=== PATIENT | female | born 1985 | race Caucasian/White ===

== ENCOUNTER 2025-03-07 09:22 | Outpatient (CLI) | payer BC, SELFPAY ==
--- NOTE | ~2025-03-07 | US_ITS ---
EXAMINATION: US axilla BI HISTORY: Palpable abnormality High resolution limited bilateral breast ultrasound was performed. COMPARISON: None. No prior mammography has been performed at this institution for comparison. FINDINGS: ULTRASOUND: Multiple morphologically benign and nonpathologically enlarged lymph nodes are detected within the bi lateral axilla, corresponding to the areas of palpable concern. The largest on the right measures 14 mm in short axis dimension. The largest on the left measures 13.5 mm in short axis dimension. Sonographic evaluation of the remainder of the bilateral axilla demonstrates benign fibroglandular el ements without a cystic or solid lesion of concern IMPRESSION: No sonographic evidence to suggest the presence of malignancy. Findings corresponding to the areas of clinical concern which represent morphologically benign and n on-pathologically enlarged lymph nodes, as detailed above. Comparison with prior mammography (with repeat mammography if currently overdue) is recommended for c omplete evaluation. BI-RADS Category 0: Incomplete: Needs comparison with prior mammograms. Reviewed, dictated and finalized at location A. IMPRESSION: No sonographic evidence to suggest the presence of malignancy. Findings corresponding to the areas of clinical concern which represent morpho logically benign and non-pathologically enlarged lymph nodes, as detailed above . Comparison with prior mammography (with repeat mammography if currently overdue ) is recommended for complete evaluation. BI-RADS Category 0: Incomplete: Needs comparison with prior mammograms.
--- OUTSIDE RECORDS SUMMARY | 2025-03-07 09:29 | XMS_ITS | Clinical Summary ---
Author Organization [facility] Address [address] [place] [id number] Care Team Providers Care Corporate Development Intern Name Role Phone Unavailable Primary Care Provider Unavailabl e Social History Tobacco Use Types Packs/Day Years Used Date Smoking Tobacco: Never Assessed Comments Unknown Sex and Gender Information Value Date Recorded Sex Assigned at Not on file Legal Sex Female 4:48 PM CDT Gender Identity Not on file Sexual Orientation Not on file Plan of Treatment Health Maintenance Due Date Last Done Comments Cervical Cancer Screening Pa p Smear (Age 30 to 64) Every 3 Years 1983 Annual Physical 1986 Hepatitis C 2001 DTaP, Tdap and Td Vaccines ( 1 - Tdap) 2002 Hepatitis B Vaccines (1 of 3 - 19+ 3-dose series) 2002 Cervical Cancer Screening Pa p with HPV Testing (Age 30 to 64) Every 5 Years 2013 Cervical Cancer Screening with HPV 2013 Mammogram Screening 2023 COVID-19 Vaccine (2023-2 5 season) 2024 PHQ-2 (Physician [place]) 08/28/2024 HPV Vaccines Aged Out No longer eligi ble based on patient's age to complete this topic Meningococcal B Vaccine Aged Out No l onger eligible based on patient's age to complete this topic Meningococcal Vaccine Aged Out No janneth li eligible based on patient's age to complete this topic Pneumococcal Vaccine: Pediat rics (0 to 5 Years) and At-Risk Patients (6 to 49 Years) Aged Out No longer eligible b ased on patient's age to complete this topic RSV Immunizations Under 20 Months Aged Out No longer eligible based on patient's age to complete this topic Insurance [facility]
--- OUTSIDE RECORDS SUMMARY | 2025-03-07 09:29 | XMS_ITS | Clinical Summary ---
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 Gender Identity Not on file Sexual Orientation Not on file Plan of Treatment Health Maintenance Due Date Last Done Comments Hepatitis C Virus (HCV) Screening 1983 Hepatitis B Immunization (1 of 3 - 19+ 3-dose series) 2002 Pap Smear 2004 Cervical Cancer Screening (CCS) 2013 HPV/Cotest 2013 Discussion re Starting/Frequency of Mammograms 2023 Influenza Immunization (#1) 04/28/202405/28, 06/09/2019, 06/06/2017, Additional history exists SARS-COV-2 Immunization ( season) 2024 10/27/2020, 10/06/2020 Respiratory Syncytial Virus (RSV) Immunization (Adult) (1 - 1-dose 75+ series) 2058 DTaP/Tdap/Td Immunization Discontinued 2015, 03/24/2014, 05/07/2008 TdaP Immunization Completed 04/08/2016, 03/24/2014 Meningococcal Immunization (ACWY) Aged Out No longer eligible based on patient's age to complete this topic Pneumococcal Immunization Combined Aged Out No longer eligible based on patient's age to complete this topic Rotavirus Immunization Aged Out No lo nger eligible based on patient's age to complete this topic
== END 2025-03-07 09:23 | disposition home or self-care (01) ==
PROVIDERS: PCP Family Medicine; Visit Provider Family Medicine
DX: R59.0 Localized enlarged lymph nodes (principal)
CPT/HCPCS: 76882

== ENCOUNTER 2025-05-01 10:06 | Outpatient (CLI) | payer BC, SELFPAY ==
--- NOTE | ~2025-05-01 | MMUS_ITS ---
EXAMINATION: MM diagnostic jennifer BI w [facility], US axilla BI HISTORY: Bilateral axillary lymph nodes TECHNIQUE: [Bilateral craniocaudal, mediolateral oblique, mediolateral and spot compression left mediolateral full field digital mammography. 3-D tomosynthesis were also obtained and synthetic 2-D images were generated. CAD analysis was submitted and interpreted. High resolution [bilateral axillary ultrasound was performed.] ] COMPARISON: Mammogram 07/15/2024; bilateral axillary ultrasound 03/07/2025 BREAST PARENCHYMAL COMPOSITION: There are scattered areas of fibroglandular density. FINDINGS: MAMMOGRAPHIC FINDINGS: No suspicious masses, calcifications or architectural distortion. ULTRASOUND: Bilateral nonenlarged, morphologically benign axillary lymph nodes. IMPRESSION/RECOMMENDATION: 1. No mammographic or sonographic evidence for malignancy. Annual screening mammogram is recommended. BIRADS 2: Benign Reviewed, dictated and finalized at location Q. IMPRESSION/RECOMMENDATION: 1. No mammographic or sonographic evidence for malignancy. Annual screening jennifer mogram is recommended. BIRADS 2: Benign IMPRESSION/RECOMMENDATION: 1. No mammographic or sonographic evidence for malignancy. Annual screening jennifer mogram is recommended. BIRADS 2: Benign
--- OUTSIDE RECORDS SUMMARY | 2025-05-01 10:43 | XMS_ITS | Clinical Summary ---
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
== END 2025-05-01 10:07 | disposition home or self-care (01) ==
LOC: ANHFOHIMG 10:11
PROVIDERS: PCP Family Medicine; Visit Provider Family Medicine
DX: R59.0 Localized enlarged lymph nodes (principal)
CPT/HCPCS: 76882; 77062; 77066; G0279

== ENCOUNTER 2025-07-05 09:30 | Outpatient (CLI) | payer BC, SELFPAY ==
--- NOTE | ~2025-07-05 | XR_ITS ---
EXAMINATION: XR shoulder RT min 2V DATE: 07/05/2025 10:04 INDICATION: Pain TECHNIQUE: Right shoulder x-ray were obtained. COMPARISON: None. FINDINGS: No displaced fracture dislocation or aggressive bone lesion seen. Soft tissues appear within normal limits. IMPRESSION: 1. No acute or aggressive bony process identified. Reviewed, dictated and finalized at location A. ROOM ATTENDANT
--- NOTE | ~2025-07-05 | XR_ITS ---
EXAM/PROCEDURE: XR cervical spine min 6V HISTORY: M54.2 - Cervicalgia COMPARISON: None available. TECHNIQUE: 7 views were obtained. FINDINGS: Vertebral bodies: The height is well maintained. Alignment: There is straightening of the normal cervical lordosis, which may be seen in muscle spasm. There is minimal anterior subluxation of C3 on C4 with flexion. There is no change in alignment with extension. Mild osteophytes through patient's throughout. There is at least some degree of facet arthropathy. There is mild bilateral neural foraminal narrowing on both sides. The odontoid process is intact. IMPRESSION: Degenerative change with subluxation as described. Reviewed, dictated and finalized at location A. [facility]
--- OUTSIDE RECORDS SUMMARY | 2025-07-05 09:38 | XMS_ITS | Clinical Summary ---
Author Organization [place] [id number] [facility] Address [facility] [place] [address] Care Team Providers Care Corporate Ethics Officer Name Role Phone Abraham Wooten DO Primary Care Provider [phone] Allergies No known active allergies Medications DULoxetine 40 mg capsule,delayed release(DR/EC) Take 40 mg by mouth 4 Active Jardiance 10 mg tablet Take 1 tablet (10 mg total) by mouth 4 Active levonorgestreL (MIRENA) IUD 1 each by intrauterine route 8 07/14/20 28 Active lisinopriL (PRINIVIL,ZESTR IL) 5 mg tablet Take 1 tablet (5 mg total) by mouth 4 Active meloxicam (MOBIC) 15 mg tablet Take 1 tablet (15 mg total) by mouth 4 Active metFORMIN (GLUCOPHAGE) 1,000 mg tablet Take 1 tablet (1,000 mg total) by mouth 4 Active triamcinolone (KENALOG) 0.1 % ointment Apply twice daily to affected area 1 Active tofacitinib (Xeljanz XR) 11 mg Take 1 tablet (11 mg total) by mouth daily 30 tablet 2 5 Active Active Problems No known active problems Encounters Date Type Department Care Team Description 06/02/2025 9:00 AM CDT Lab [address] [place] [address] High risk medication use 06/02/2025 8:00 AM CDT Office Visit [facility] Medicine Rheumatology [address] [place] [address] Maru Walker MD High risk medication use (Primary Dx); Paresthesia of left upper extremity; Paresthesia of right upper extremity 06/02/2025 Telephone [facility] [address] [place] [phone] ZeinabrAminta, [facility] Prior Auth (Xeljanz) 05/26/2025 3:04 PM CDT - 05/26/2025 11:59 PM CDT Hospital Encounter [facility] [id number] [place] [id number] Lymphadenopathy Discharge Disposition: Discharge to home or self care 05/26/2025 3:00 PM CDT - 05/26/2025 11:59 PM CDT Hospital Encounter [facility] [id number] [place] [id number] Ankylosing spondylitis, unspecified site of spine (HCC); Rheumatoid factor positive Discharge Disposition: Discharge to home or self care 05/26/2025 2:59 PM CDT - 05/26/2025 11:59 PM CDT Hospital Encounter [facility] [id number] [place] [address] [id number] Lymphadenopathy; Immunosuppression Discharge Disposition: Discharge to home or self care 04/30/2025 12:17 PM CDT - 04/30/2025 11:59 PM CDT Hospital Encounter [facility] [address] [place] [address] Ankylosing spondylitis, unspecified site of spine (HCC); Rheumatoid factor positive Discharge Disposition: Discharge to home or self care 04/30/2025 11:05 AM CDT Lab [facility] Medicine Endocrinology Metabolism and Lipid [address] [place] [phone] Ankylosing spondylitis, unspecified site of spine (HCC); Rheumatoid factor positive 04/30/2025 10:00 AM CDT Office Visit [facility] Medicine Rheumatology [address] [place] [address] [place] [address] Maru Walker MD Ankylosing spondylitis, unspecified site of spine (HCC) (Primary Dx); Rheumatoid factor positive; Lymphadenopathy; Immunosuppression from Last 3 Months Surgical History Surgery Date Site/Laterality Comments CARPAL TUNNEL RELEASE 08/28/2018 - 08/27/2019 Bilateral POLYPECTOMY 08/28/2023 - 08/27/2024 Uterine Polyp Medical History Medical History Date Comments Depression 2013 Chronic fatigue High cholesterol 2020 PCOS (polycystic ovarian syndrome) 2013 Diabetes 2020 Family History Medical History Relation Name Comments back problems Brother Lung cancer Father Osteoarthritis Father [place] Lymphoma Mother Osteoarthritis Mother Diabetes Sister Relation Name Status Comments Brother Father (Age 73) Mother Alive Sister Alive Social History Tobacco Use Types Packs/Day Years Used Date Smoking Tobacco: Never Passive Smoke Exposure: Past Smokeless Tobacco: Never Tobacco Cessation:Counseling Given: Not Answered Alcohol Use Standard Drinks/Week Comments Never 0 (1 standard drink = 0.6 oz pur e alcohol) AUDIT-C Answer Date Recorded Q1: How often do you have a drink containing alcohol? Never 04/30/2025 Q2: How many drinks containi ng alcohol do you have on a typical day when you are drinking? Patient does not drink Q3: How often do you have si x or more drinks on one occasion? Never 04/30/2025 Comments Unknown Sex and Gender Information Value Date Recorded Sex Assigned at Not on file Legal Sex Female 1:51 PM CDT Gender Identity Not on file Sexual Orientation Not on file Last Filed Vital Signs Vital Sign Reading Time Taken Comments Blood Pressure 111/75 06/02/2025 7:55 AM CDT Pulse 70 06/02/2025 7:55 AM CDT Temperature 36.6 C (97.8 F) 06/02/2025 7:55 AM CDT Respiratory Rate 18 04/30/2025 10:04 AM CDT Oxygen Saturation 99% 06/02/2025 7:55 AM CDT Inhaled Oxygen Concentration - - Weight 82.6 kg (182 lb) 06/02/2025 7:55 AM CDT Height 157.5 cm (5' 2) 06/02/2025 7:55 AM CDT Body Mass Index 33.29 06/02/2025 7:55 AM CDT Plan of Treatment Health Maintenance Due Date Last Done Comments Breast Cancer Screening-Mammogram 1983 Cervical Cancer Screening 1983 Depression Screening 1983 Varicella Vaccines (1 of 2 - 13+ 2-dose series) 1996 Hepatitis B Screening 2001 Regular Well Visit/Exam 18-64 2001 Zoster Vaccine (1 of 2) 2002 HPV Vaccines (1 - 3-dose SCD M series) 2010 Covid-19 Vaccine (6 - 2024-2 6 season) 2025 08/11/2023, 05/29/2022, 07/01/2021, Additional history exists Influenza Vaccine (#1) 2025 , 05/29/2022, 05/19/2021, Additional history exists DTaP/Tdap/Td Vaccine (3 - Td or Tdap) 04/08/2026 04/08/2016, 03/24/2014, 05/07/2008 Pneumococcal vaccine <65 Completed 08/11/2023 Hepatitis C Screening Completed 04/30/2025 Procedures Procedure Name Priority Date/Time Associated Diagnosis Comments CREATINE KINASE (CK), TOTAL Routine 06/02/2025 9:42 AM CDT High risk medication use EGFR Routine 06/02/2025 9:18 AM CDT High risk medication use DIFFERENTIAL AUTO Routine 06/02/2025 9:1 8 AM CDT High risk medication use CBC WITH AUTO DIFFERENTIAL Routine 06/02/2025 9:18 AM CDT High risk medication use COMPREHENSIVE METABOLIC PANEL Routine 06/02/2025 9:18 AM CDT High risk medication use ERYTHROCYTE SEDIMENTATION RATE Routine 06/02/2025 9:18 AM CDT High risk medication use CRP (ACUTE PHASE) Routine 06/02/2025 9:1 8 AM CDT High risk medication use ALDOLASE Routine 06/02/2025 9:18 AM CDT High risk medication use T-SPOT.TB Routine 06/02/2025 9:18 AM CDT High risk medication use ANTIHISTONE ANTIBODIES Routine 9:15 AM CDT High risk medication use XR HAND BILATERAL 3 OR MORE VIEWS OF EACH Schedule Routine, Read Routine (OP Routine) 05/26/2025 3:43 PM CDT Ankylosing spondylitis, unspecified site of spine (HCC) Rheumatoid factor positive CT CHEST W CONTRAST Schedule Routine, Read Routine (OP Routine) 05/26/2025 3:23 PM CDT Lymphadenopathy Immunosuppression CT SOFT TISSUE NECK W CONTRAST Schedule Routine, Read Routine (OP Routine) 05/26/2025 3:22 PM CDT Lymphadenopathy HLA CLASS I DNA (ABC) RECIPIENT Routine 05/01/2025 7:46 AM CDT Ankylosing spondylitis, unspecified site of spine (HCC) Rheumatoid factor positive HLA-B*27 TYPING FOR ANKYLOSING SPONDYLITIS Routine 04/30/2025 1:45 PM CDT Ankylosing spondylitis, unspecified site of spine (HCC) Rheumatoid factor positive JARETH ANTIBODY EVALUATION WITH REFLEX Routine 04/30/2025 11:17 AM CDT Ankylosing spondylitis, unspecified site of spine (HCC) Rheumatoid factor positive DAR QUALITATIVE WITH REFLEX TO DAR QUANTITATIVE Routine 04/30/2025 11:17 AM CDT Ankylosing spondylitis, unspecified site of spine (HCC) Rheumatoid factor positive ANTI-NEUTROPHILIC CYTOPLASMIC ANTIBODY (ANCA) WITH REFLEX TO MPO AND PR3 ABS Routine 04/30/2025 11:17 AM CDT Ankylosing spondylitis, unspecified site of spine (HCC) Rheumatoid factor positive CYCLIC CITRUL PEPTIDE ANTIBODY, IGG Routine 04/30/2025 11:17 AM CDT Ankylosing spondylitis, unspecified site of spine (HCC) Rheumatoid factor positive MYELOPEROXIDASE ANTIBODY Routine 04/30/2025 11:17 AM CDT Ankylosing spondylitis, unspecified site of spine (HCC) Rheumatoid factor positive PROTEINASE-3 ANTIBODY Routine 04/30/2025 11:17 AM CDT Ankylosing spondylitis, unspecified site of spine (HCC) Rheumatoid factor positive RHEUMATOID FACTOR Routine 04/30/2025 11:17 AM CDT Ankylosing spondylitis, unspecified site of spine (HCC) Rheumatoid factor positive ERYTHROCYTE SEDIMENTATION RATE Routine 04/30/2025 11:17 AM CDT Ankylosing spondylitis, unspecified site of spine (HCC) Rheumatoid factor positive CRP (ACUTE PHASE) Routine 04/30/2025 11:17 AM CDT Ankylosing spondylitis, unspecified site of spine (HCC) Rheumatoid factor positive CBC WITH AUTO DIFFERENTIAL Routine 04/30/2025 11:17 AM CDT Ankylosing spondylitis, unspecified site of spine (HCC) Rheumatoid factor positive COMPREHENSIVE METABOLIC PANEL Routine 04/30/2025 11:17 AM CDT Ankylosing spondylitis, unspecified site of spine (HCC) Rheumatoid factor positive HEPATITIS PANEL, ACUTE Routine 11:17 AM CDT Ankylosing spondylitis, unspecified site of spine (HCC) Rheumatoid factor positive T-SPOT.TB Routine 04/30/2025 11:17 AM CDT Ankylosing spondylitis, unspecified site of spine (HCC) Rheumatoid factor positive URINALYSIS AND REFLEX TO MICROSCOPIC AND CULTURE Routine 04/30/2025 11:17 AM CDT Ankylosing spondylitis, unspecified site of spine (HCC) Rheumatoid factor positive from Last 3 Months Results * Creatine kinase (CK), total (06/02/2025 9:42 AM CDT) Pathologist [facility] CK 84 30 - 200 Units/L Blood 06/02/2025 9:42 AM CDT 06/02/2025 1:20 PM CDT Maru Walker MD LAB BLOOD ORDERABLES Final Resul t [facility] [place] [address] * T-SPOT.TB Blood (06/02/2025 9:18 AM CDT) [facility] T-SPOT.TB Negative SeeBelow Comment: Normal Value: Negative A negative test result does not exclude the possibility of exposure to or infection with Mycobacterium tuberculosis (M. tuberculosis). Patients with recent exposure to TB infected individuals exhibiting a negative T-SPOT.TB result should be considered for retesting within 6 weeks or if other relevant clinical symptoms indicate. Results from T-SPOT.TB testing must be used in conjunction with each individual's epidemiological history, current medical status, and results of other diagnostic evaluations. The T-SPOT.TB test is qualitative and results are reported as positive, borderline or negative, given that the test controls perform as expected. In line with the Centers for Disease Control and Prevention's 2010 recommendation to report quantitative measurements alongside the qualitative result, the laboratory provides spot counts for informational purposes only. The T-SPOT.TB test should not be interpreted as a quantitative test. T-SPOT.TB Panel A Spot Count [address] [facility] T-SPOT.TB Panel B Spot Count [address] [facility] T-SPOT.TB Negative Control Passed [facility] T-SPOT.TB Positive Control Passed [facility] Comment: Test Performed at: [facility], [email or web address] [address] [place] [id number] LISANDRA ALANIS,PHD Blood 06/02/2025 9:18 AM CDT 06/02/2025 1:10 PM CDT Maur Walker MD LAB MICROBIOLOGY - GENERAL ORDER MORRIS Final Result [facility] Department [place] [address] * eGFR (06/02/2025 9:18 AM CDT) eGFR >90 >=60 mL/min/1. 73 m2 Comment: Interpretive Data Reference Interval Normal >/= 90 mL/min/1.73m2 Mildly decreased* 60 - 89 mL/min/1.73m2 Mildly to moderately decreased 45 - 59 mL/min/1.73m2 Moderately to severely decreased 30 - 44 mL/min/1.73m2 Severely decreased 15 - 29 mL/min/1.73m2 Kidney Failure < 15 mL/min/1.73m2 *Relative to young adult level Estimated glomerular filtration rate is determined by the 2020 CKD-EPI equation recommended by the National Kidney Foundation (A Unifying Approach to GFR Estimation: Recommendations of the NKF-ASK Task Force on Reassessing the Inclusion of Race in Diagnosing Kidney Disease, JASN 2020). The CKD-EPI equation should not be used for patients with unstable renal function and has not been validated in children and those over 70. Current interpretive data was last reviewed 2021. Blood 06/02/2025 9:18 AM CDT 06/02/2025 2:11 PM CDT us Maru Walker MD LAB BLOOD ORDERABLES [facility]ul [facility] [place] [address] * Differential, auto (06/02/2025 9:18 AM CDT) Neutrophil abs 3.38 1.50 - 6.50 K/cumm Imm gran abs 0.04 0.00 - 0.10 K/cumm [facility] Lymphocyte abs 2.71 0.80 - 3.30 K/cumm [facility] Monocyte abs 0.42 0.20 - 0.80 K/cumm [facility] Eosinophil abs 0.31 0.00 - 0.50 K/cumm [facility] Basophil abs 0.07 0.00 - 0.10 K/cumm [facility] Neutrophil pct 48.7 % [facility] Comment: Interpretive Data Percent cell count reference ranges are not reported, since discordance with absolute values may lead to misinterpretation of CBC data. Current Interpretive Data was last revised on 2017. Imm gran pct 0.6 % [facility] Comment: Interpretive Data Percent cell count reference ranges are not reported, since discordance with absolute values may lead to misinterpretation of CBC data. Current Interpretive Data was last revised on 2017. Lymphocyte pct 39.1 % [facility] Comment: Interpretive Data Percent cell count reference ranges are not reported, since discordance with absolute values may lead to misinterpretation of CBC data. Current Interpretive Data was last revised on 2017. Monocyte pct 6.1 % [facility] Comment: Interpretive Data Percent cell count reference ranges are not reported, since discordance with absolute values may lead to misinterpretation of CBC data. Current Interpretive Data was last revised on 2017. Eosinophil pct 4.5 % [facility] Comment: Interpretive Data Percent cell count reference ranges are not reported, since discordance with absolute values may lead to misinterpretation of CBC data. Current Interpretive Data was last revised on 2017. Basophil pct 1.0 % [facility] Comment: Interpretive Data Percent cell count reference ranges are not reported, since discordance with absolute values may lead to misinterpretation of CBC data. Current Interpretive Data was last revised on 2017. Blood 06/02/2025 9:18 AM CDT 06/02/2025 12:06 PM CDT us Maru Walker MD LAB BLOOD ORDERABLES Final Resul t [facility] [place] [address] * CBC with auto differential (06/02/2025 9:18 AM CDT) WBC 6.93 3.80 - 9.90 K/cumm Hgb 14.3 11.9 - 15.5 g/dL [facility] Hct 43.8 35.6 - 45.5 % [facility] Plt 361 150 - 400 K/cumm [facility] MPV 10.8 9.1 - 12.[address] [facility] RBC 5.06 3.90 - 5.20 M/cumm [facility] MCV 86.6 81.3 - 96.[address] [facility] MCH 28.3 27.1 - 33.[address] [facility] MCHC 32.6 32.3 - 35.7 g/dL [facility] RDW CV 13.2 11.1 - 14.9 % [facility] RDW SD 41.1 35.7 - 48.[address] [facility] NRBC abs 0.00 0.00 - 0.01 K/cumm [facility] Blood 06/02/2025 9:18 AM CDT 06/02/2025 12:06 PM CDT Maru Walker MD LAB BLOOD ORDERABLES Final Resul t Performing Organization Address City/[facility] Co de Phone Number [facility] [place] [employer] [place] [address] * Aldolase (06/02/2025 9:18 AM CDT) Pathologist [facility] Aldolase 4.4 0.1 - 8.0 Units/L Blood 06/02/2025 9:18 AM CDT 06/02/2025 12:05 PM CDT Maru Walker MD LAB BLOOD ORDERABLES Final Resul t [facility] [place] [address] * Erythrocyte sedimentation rate (06/02/2025 9:18 AM CDT) Erythrocyte sedimentation rate 14 1 - 20 mm/hr Blood 06/02/2025 9:18 AM CDT 06/02/2025 12:06 PM CDT Maru Walker MD LAB BLOOD ORDERABLES Final Resul t Performing Organization Address City/[facility]/ZIP Co de Phone Number [facility] Department [place] [address] * CRP (acute phase) (06/02/2025 9:18 AM CDT) Pathologist [facility] CRP 2.2 <=10.0 mg/L Blood 06/02/2025 9:18 AM CDT 06/02/2025 1:20 PM CDT Maru Walker MD LAB BLOOD ORDERABLES Final Resul t Performing Organization Address [facility] de Phone Number [facility] [place] [address] * Comprehensive metabolic panel (06/02/2025 9:18 AM CDT) Pathologist [facility] Sodium 138 135 - 145 mmol/L Potassium, pl 4.2 3.3 - 4.9 mmol/L [facility] Chloride 102 97 - 110 mmol/L [facility] CO2 25 22 - 32 mmol/L [facility] Anion gap 11 2 - 15 mmol/L [facility] BUN 13 6 - 25 mg/dL [facility] Creatinine 0.81 0.60 - 1.10 mg/dL [facility] Glucose 133 70 - 199 mg/dL [facility] Comment: Interpretive Data Fasting glucose >/= 126 mg/dl is diagnostic for diabetes. Fasting is defined as no caloric intake for at least 8 hours. Fasting glucose between 100 mg/dl to 125 mg/dl is diagnostic of prediabetes. In a patient with classic symptoms of hyperglycemia or hyperglycemic crisis, a random glucose >/= 200 mg/dl is diagnostic for diabetes. In the absence of unequivocal hyperglycemia, results should be confirmed by repeat testing. The classification and Diagnosis of Diabetes Diabetes Care 2021; 46: S19-S40. Current interpretive data was last revised 2022. Calcium 9.4 8.5 - 10.3 mg/dL [facility] Bilirubin, total 0.7 0.1 - 1.2 mg/dL [facility] Protein, pl 7.9 6.5 - 8.5 g/dL [facility] Albumin 4.8 3.5 - 5.0 g/dL [facility] Alk phos 88 40 - 130 Units/L [facility] ALT 29 7 - 45 Units/L [facility] AST 24 10 - 45 Units/L [facility] Blood 06/02/2025 9:18 AM CDT 06/02/2025 1:20 PM CDT Maru Walker MD LAB BLOOD ORDERABLES Final Resul t Performing Organization Address [facility] de Phone Number [facility] [place] [place] [address] * (ABNORMAL) Antihistone antibodies (06/02/2025 9:15 AM CDT) Antihistone 2.8(H) U Comment: Value Explanation of Results ------ <1.0 Negative 1.0-1.5 Weak Positive 1.6-2.5 Moderate Positive >2.5 Strong Positive Test Performed at: [facility] [address] [id number] GLENN GORMAN Blood 06/02/2025 9:15 AM CDT 06/02/2025 12:29 PM CDT Maru Walker MD LAB BLOOD ORDERABLES Final Resul t Performing Organization Address [facility] de Phone Number [facility] [place] [place] [address] * XR Hand Bilateral 3 or More Views of Each (05/26/2025 3:43 PM CDT) Anatomical Region Laterality Modality Upper Extremities, Hand Computed Radiography 05/28/2025 11:3 7 AM CDT Impressions 05/28/2025 11:37 AM CDT No bone or joint abnormality seen. Electronically signed by: Jere Mei M.D. Narrative 05/28/2025 11:37 AM CDT EXAMINATION: XR HAND BILATERAL 3 OR MORE VIEWS OF EACH HISTORY: The patient is a 40-year-old female who presents with a history of ankylosing spondylitis. TECHNIQUE: 3 views each of the right and the left hand. FINDINGS: No fracture or dislocation. No joint space narrowing or bony erosions. Procedure Note Jere Mei MD - 05/28/2025 EXAMINATION: XR HAND BILATERAL 3 OR MORE VIEWS OF EACH HISTORY: The patient is a 40-year-old female who presents with a history of ankylosing spondylitis. TECHNIQUE: 3 views each of the right and the left hand. FINDINGS: No fracture or dislocation. No joint space narrowing or bony erosions. IMPRESSION: No bone or joint abnormality seen. Electronically signed by: Jere Mei M.D. Maru Walker MD IMG XR PROCEDURES Final Result * CT chest with contrast (05/26/2025 3:23 PM CDT) Anatomical Region Laterality Modality Body N/A Computed Tomogra phy 05/26/2025 3:32 PM CDT Impressions 05/26/2025 3:32 PM CDT 1. No acute findings. 2. Healed granulomatous disease. Electronically signed by: Asaf Mccray II, D.O. Narrative 05/26/2025 3:32 PM CDT Indication: Evaluate for lymphadenopathy. Comparison: None. Technique: Contrast enhanced axial CT imaging of the chest with coronal and sagittal reconstructions. Approximately 120 mL of Optiray 350 was administered for this examination. Findings: Calcified granulomas in the mediastinum. No pleural effusion. No consolidation. Thyroid is unremarkable. Calcified granulomas in the mediastinum. There is a small hiatal hernia. Diffuse hepatic steatosis. No acute osseous abnormality. No suspicious lytic or sclerotic lesions. Normal axillary lymph nodes containing fatty kusum. Procedure Note Asaf Mccray II, DO - 05/26/2025 Indication: Evaluate for lymphadenopathy. Comparison: None. Technique: Contrast enhanced axial CT imaging of the chest with coronal and sagittal reconstructions. Approximately 120 mL of Optiray 350 was administered for this examination. Findings: Calcified granulomas in the mediastinum. No pleural effusion. No consolidation. Thyroid is unremarkable. Calcified granulomas in the mediastinum. There is a small hiatal hernia. Diffuse hepatic steatosis. No acute osseous abnormality. No suspicious lytic or sclerotic lesions. Normal axillary lymph nodes containing fatty kusum. IMPRESSION: 1. No acute findings. 2. Healed granulomatous disease. Electronically signed by: Asaf Mccray II, D.O. Maru Walker MD IM CT PROCEDURES Final Result * CT Neck Soft Tissue W Contrast (05/26/2025 3:22 PM CDT) Anatomical Region Laterality Modality Head and Neck N/A Computed Tomogra phy 05/26/2025 3:41 PM CDT Impressions 05/26/2025 3:41 PM CDT 1. No evidence of cervical lymphadenopathy. 2. Multilevel facet and uncovertebral joint disease in the cervical spine resulting in up to severe neural foraminal stenoses at multiple levels bilaterally. Electronically signed by: Marlee Lara DO Narrative 05/26/2025 3:41 PM CDT EXAMINATION: CT of the neck with contrast HISTORY: 40-year-old female with reported history of ankylosing spondylitis, concern for lymphadenopathy TECHNIQUE: CT of the neck was performed according to standard protocol after the administration of 120 mL of Optiray 350 intravenous contrast. COMPARISON: None available. FINDINGS: Scattered lymph nodes are seen throughout the neck which measure subcentimeter in short axis, without meeting CT size criteria for lymphadenopathy. The muscles of the neck are normal. Vessels of the neck demonstrate normal course and caliber. Fascial planes are preserved and the deep spaces of the neck are normal. The visualized airway is widely patent. Limited views of the brain including the cerebellum and brainstem are normal. The visualized portions of the orbits are normal. Periapical lucencies around several left maxillary teeth with associated mild mucosal thickening of the inferior left maxillary sinus. Multilevel facet and uncovertebral joint disease in the cervical spine resulting in up to severe neural foraminal stenoses at multiple levels bilaterally. Bony fusion of the C7-T1 vertebral bodies and portions of their posterior elements. Partially calcified lymph nodes seen in the upper mediastinum which may represent sequela of prior granulomatous disease. Calcified granulomas in the right upper lung. Procedure Note Marlee Alfaro DO - 05/26/2025 EXAMINATION: CT of the neck with contrast HISTORY: 40-year-old female with reported history of ankylosing spondylitis, concern for lymphadenopathy TECHNIQUE: CT of the neck was performed according to standard protocol after the administration of 120 mL of Optiray 350 intravenous contrast. COMPARISON: None available. FINDINGS: Scattered lymph nodes are seen throughout the neck which measure subcentimeter in short axis, without meeting CT size criteria for lymphadenopathy. The muscles of the neck are normal. Vessels of the neck demonstrate normal course and caliber. Fascial planes are preserved and the deep spaces of the neck are normal. The visualized airway is widely patent. Limited views of the brain including the cerebellum and brainstem are normal. The visualized portions of the orbits are normal. Periapical lucencies around several left maxillary teeth with associated mild mucosal thickening of the inferior left maxillary sinus. Multilevel facet and uncovertebral joint disease in the cervical spine resulting in up to severe neural foraminal stenoses at multiple levels bilaterally. Bony fusion of the C7-T1 vertebral bodies and portions of their posterior elements. Partially calcified lymph nodes seen in the upper mediastinum which may represent sequela of prior granulomatous disease. Calcified granulomas in the right upper lung. IMPRESSION: 1. No evidence of cervical lymphadenopathy. 2. Multilevel facet and uncovertebral joint disease in the cervical spine resulting in up to severe neural foraminal stenoses at multiple levels bilaterally. Electronically signed by: Marlee Lara DO Maru Walker MD [facility] CT PROCEDURES Final Result * Collection Task for HLA Typing 1 (05/01/2025 7:46 AM CDT) HLA Class I DNA (ABC) Recipient Received Blood 05/01/2025 7:46 AM CDT 05/02/2025 9:35 AM CDT us Maru Walker MD LAB BLOOD ORDERABLES Final Resul t Performing Organization Address [facility] Co de Phone Number [facility] [place] [address] * HLA-B*27 typing for ankylosing spondylitis (04/30/2025 1:45 PM CDT) HLA-B27 interp HLA-B*27 is Positive. HISTOTRAC Blood 04/30/2025 1:45 PM CDT 05/05/2025 1:26 PM CDT Narrative HISTOTRAC - 05/05/2025 1:26 PM CDT HLA-B typing is performed using the reverse sequence specific oligonucleotide (r-SSO) method, which is based on an FDA approved IVD kit and validated by the [facility] HLA laboratory. Interpretive comments: HLA-B*27 positivity confers increased risk for ankylosing spondylitis or nonradiographic axial spondyloarthritis. The absence of HLA-B*27 may help rule out these diagnoses Expected: HLA-B*27 has been found in 74% to 89% of patients with either nonradiographic axial spondyloarthritis or ankylosing spondylitis. The absolute risk of spondyloarthritis in persons with HLA-B*27 is 2% to 10%. (N Engl J Med 2016;374:2563-74) Testing performed at the [facility], [address] [place] [address], 5th floor, [place], [address]. [facility] # [id number]. Marlene Meneses, Ph.D., Farm Contractor, HLA Laboratory Alfonzo Estrada M.D., Ph.D., Manager Cosmetic, HLA Laboratory Aliyah Yi, Ph.D., CLIA Manager Cosmetic, [facility] Current methodology and interpretive comments were last revised on 03/20/2017 us Maru Walker MD LAB BLOOD ORDERABLES Final Resul t Performing Organization Address City/[facility]/ZIP Co de Phone Number HISTOTRAC * DAR ab ql w/rflx to DAR qn (04/30/2025 11:17 AM CDT) DAR Negative Comment: Interpretive Data Normal range for DAR Qualitative Antibody = Negative. 1. DAR is performed using indirect immunofluorescence against HEp-2 cells 2. DAR titers are performed on all positive qualitative results. 3. A significantly positive DAR result is defined as a positive nuclear fluorescence at a titer of 1:80 or greater. 4. 15% of normal people above age 65 have significantly positive DAR results. 5% or less of normal people age 65 or under have significantly positive DAR results. Current interpretive data was last revised on 2020. Blood 04/30/2025 11:1 7 AM CDT 04/30/2025 1:46 PM CDT us Maru Walker MD LAB BLOOD ORDERABLES Final Resul t [facility] [place] [address] * T-SPOT.TB Blood (04/30/2025 11:17 AM CDT) T-SPOT.TB BORDERLINE SeeBelow Comment: Normal Value: Negative The patient's test result cannot be definitively classified as positive or negative. Retesting of the patient is recommended although there is no set guideline established for the time interval between an initial borderline result and a retest. The T-SPOT.TB is a diagnostic aid. If the test result remains borderline upon retesting, other diagnostics and/or epidemiologic information should be used to help determine the Mycobacterium tuberculosis infection status of the patient. The T-SPOT.TB test is qualitative and results are reported as positive, borderline or negative, given that the test controls perform as expected. In line with the Centers for Disease Control and Prevention's 2010 recommendation to report quantitative measurements alongside the qualitative result, the laboratory provides spot counts for informational purposes only. The T-SPOT.TB test should not be interpreted as a quantitative test. T-SPOT.TB Panel A Spot Count [address] [facility] T-SPOT.TB Panel B Spot Count [address] [facility] T-SPOT.TB Negative Control Passed [facility] T-SPOT.TB Positive Control Passed [facility] Comment: Test Performed at: [facility], [email or web address] [address] [place] [id number] LISANDRA ALANIS,PHD Blood 04/30/2025 11:1 7 AM CDT 04/30/2025 1:54 PM CDT Maru Walker MD LAB MICROBIOLOGY - GENERAL ORDER MORRIS Final Result Performing Organization Address [facility] de Phone Number [facility] [place] [employer] [place] [address] * JARETH ab eval w/reflex (04/30/2025 11:17 AM CDT) JARETH ab Negative Negative Comment: Interpretive Data Positive Screens will be reflexed to specific testing for Antibodies against the following antigens: Fauzia-1 Ab, SOAP CHIPPER Ab, Scl-70 Ab, Bains Ab, SS-A/Ro Ab, and SS- B/La Ab. Further testing for dsDNA, Centromere, or Ribosomal P antibodies is suggested in patient with a positive screen and negative specific antibodies. Current interpretive data was last revised on 2023. Blood 04/30/2025 11:1 7 AM CDT 04/30/2025 1:46 PM CDT Maru Walker MD LAB BLOOD ORDERABLES Final Resul t Performing Organization Address [facility] de Phone Number [facility] [place] [address] * PR3 - proteinase 3, Ab (04/30/2025 11:17 AM CDT) Pathologist [facility] Proteinase 3 ab <0.2 <=0.9 Ab Index Comment: Interpretive Data Negative: <1 Ab Index Positive: > or = 1 Ab Index Current interpretive data was last revised on 2017. Blood 04/30/2025 11:1 7 AM CDT 04/30/2025 1:46 PM CDT Maru Walker MD LAB BLOOD ORDERABLES Final Resul t Performing Organization Address [facility] de Phone [facility] [place] [address] * MPO - myeloperoxidase antibody (04/30/2025 11:17 AM CDT) Myeloperoxidase ab <0.2 <=0.9 Ab Index Comment: Interpretive Data Negative: <1 Ab Index Positive: > or = 1 Ab Index Current interpretive data was last revised on 2017. Blood 04/30/2025 11:1 7 AM CDT 04/30/2025 1:46 PM CDT Maru Walker MD LAB BLOOD ORDERABLES Final Resul t Performing Organization Address [facility] de Phone Number [facility] Department [place] [address] * Anti-Neutrophilic Cytoplasmic Antibody (ANCA) with Reflex to MPO and PR3 Abs (04/30/2025 11:17 AM CDT) Pathologist [facility] ANCA Negative Blood 04/30/2025 11:1 7 AM CDT 04/30/2025 1:46 PM CDT Maru Walker MD LAB BLOOD ORDERABLES Final Resul t Performing Organization Address [facility] de Phone Number [facility] Department [place] [address] * (ABNORMAL) Urinalysis reflex to microscopic and culture Urine, clean voided (04/30/2025 11:17 AM CDT) Color, ur Straw Yellow Clarity, ur Clear Clear [facility] Specific gravity, ur 1.023 1.003 - 1.[address] [facility] pH, urine 5.[address] [facility] Comment: Interpretive Data U rine pH is affected by diet, medications, systemic acid-base disturbances, and renal tubular function. pH may affect urinary stone formation. For example, urine pH below 6.0 may help reduce the tendency for calcium phosphate stones and pH greater than 6.0 may reduce the tendency for uric acid stone formation. Source: [facility] Current Interpretive Data was last revised on 2017 Protein, ur ql Negative Negative [facility] Glucose, ur ql 4+(A) Negative [facility] Ketones, ur Trace Negative [facility] Bilirubin, ur Negative Negative [facility] Blood, ur Negative Negative [facility] Urobilinogen, ur <2.0 <2.0 mg/dL [facility] Nitrite, ur Negative Negative [facility] Leukocyte esterase, ur Negative Negative [facility] UA reflex comment Reflex conditions for microscopic UA and culture not met. [facility] Urine, clean voided 04/30/2025 11:17 AM CDT 04/30/2025 1:47 PM CDT us Maru Walker MD LAB MICROBIOLOGY - GENERAL ORDER MORRIS Final Result [facility] [place] [address] * (ABNORMAL) CBC with auto differential (04/30/2025 11:17 AM CDT) White Blood Count 8.5 3.6 - 11.2 K/uL [facility] RBC 4.91 3.63 - 4.92 M/uL [facility] Hemoglobin 14.1 11.9 - 15.5 g/dL [facility] Hematocrit 42.8 36.1 - 44.3 % [facility] MCV 87.2 80.0 - 97.6 fL [facility] MCH 28.8 26.7 - 33.7 pg [facility] MCHC 33.0 32.7 - 35.5 g/dL [facility] RBC Dist Width 13.3 12.3 - 17.0 % [facility] Platelet Count 334 140 - 440 K/uL [facility] MPV 9.4 6.8 - 10.4 fL [facility] Neutrophils % 48.3 38.7 - 74.5 % [facility] Lymphocyte % 37.3 20.0 - 54.3 % [facility] Monocytes % 6.3 4.3 - 13.5 % [facility] Eosinophils % 7.6(H) 0.0 - 6.0 % [facility] Basophil % 0.5 0.0 - 3.0 % [facility] Absolute Neutrophil 4.1 1.8 - 6.6 K/uL [facility] Absolute Lymphocyte 3.2 0.8 - 3.3 K/uL [facility] Absolute Monocyte 0.5 0.2 - 1.2 K/uL [facility] Absolute Eosinophil 0.6(H) 0.0 - 0.5 K/uL [facility] Absolute Basophil 0.0 0.0 - 0.2 K/uL [facility] Nucleated RBC % 0.1 0.0 - 0.4 /100 WBC [facility] Blood 04/30/2025 11:1 7 AM CDT 04/30/2025 12:37 PM CDT Maru Walker MD LAB BLOOD ORDERABLES Final Resul t [facility] * Cyclic citrul peptide antibody, IgG (04/30/2025 11:17 AM CDT) CCP Ab <0.5 <=2.9 units/mL Comment: Interpretive data Negative: <3 units/mL Positive: > or equal to 3 units/mL Current interpretive data was last revised on 2016. Blood 04/30/2025 11:1 7 AM CDT 04/30/2025 1:46 PM CDT Maru Walker MD LAB BLOOD ORDERABLES Final Resul t [facility] Department [place] [address] * Hepatitis panel, acute Blood (04/30/2025 11:17 AM CDT) [facility] Hep A IgM Nonreactive Nonreactive Hep B core IgM Nonreactive Nonreactive [facility] Hep C Ab Nonreactive Nonreactive [facility] Comment:Antibodies to HCV no t detected. Does NOT exclude the possibility of recent exposure to HCV. Current interpretive data was last revised on 22 HepBsAg Nonreactive Nonreactive [facility] Blood 04/30/2025 11:1 7 AM CDT 04/30/2025 1:46 PM CDT Maru Walker MD LAB MICROBIOLOGY - GENERAL ORDER MORRIS Final Result [facility] [place] [address] * (ABNORMAL) Erythrocyte sedimentation rate (04/30/2025 11:17 AM CDT) [facility] Erythrocyte Sedimentation Rate 31(H) <20 mm/hr [facility] Blood 04/30/2025 11:1 7 AM CDT 04/30/2025 12:37 PM CDT Maru Walker MD LAB BLOOD ORDERABLES Final Resul t [facility] * Rheumatoid factor (04/30/2025 11:17 AM CDT) [facility] Rheumatoid factor, quant 11.0 0.1 - 15.0 IUnits/mL Blood 04/30/2025 11:1 7 AM CDT 04/30/2025 1:46 PM CDT Maru Walker MD LAB BLOOD ORDERABLES Final Resul t Performing Organization Address City/[facility]/ZIP Co de Phone Number [facility] [place] [place] [address] * CRP (acute phase) (04/30/2025 11:17 AM CDT) C-Reactive Protein, Acute 3.4 <5.0 mg/L [facility] Blood 04/30/2025 11:1 7 AM CDT 04/30/2025 12:37 PM CDT Maru Walker MD LAB BLOOD ORDERABLES Final Resul t [facility] * (ABNORMAL) Comprehensive metabolic panel (04/30/2025 11:17 AM CDT) Total Protein 7.9 6.1 - 8.4 g/dL [facility] Albumin 4.5 3.5 - 5.2 g/dL [facility] Calcium 9.6 8.6 - 10.3 mg/dL [facility] BUN 14 7 - 23 mg/dL [facility] Total Bilirubin 0.43 0.20 - 1.40 mg/dL [facility] Alk Phos, Total 104 35 - 129 IU/L [facility] AST (SGOT) 21 11 - 47 IU/L [facility] ALT (SGPT) 43 6 - 53 IU/L [facility] Creatinine 0.73 0.60 - 1.10 mg/dL [facility] Sodium 138 135 - 145 mmol/L [facility] Potassium 4.1 3.3 - 5.1 mmol/L [facility] Chloride 102 95 - 107 mmol/L [facility] CO2 Content 22 21 - 29 mmol/L [facility] Glucose 108(H) 64 - 99 mg/dL [facility] Comment: NONFASTING GLUCOSE RANGE = 64-199 mg/dL FASTING GLUCOSE 64 - 99 = NORMAL FASTING GLUCOSE 100 - 125 = IMPAIRED FASTING GLUCOSE FASTING GLUCOSE >=126 = PROVISIONAL DIAGNOSIS OF DIABETES eGFR >90.0 >60.0 mL/min/1.7 3 m2 [facility] Blood 04/30/2025 11:1 7 AM CDT 04/30/2025 12:37 PM CDT us Maru Walker MD LAB BLOOD ORDERABLES Final Resul t [facility] from Last 3 Months Insurance Schedulicity OOS Schedulicity OOS Care Teams Corporate Ethics Officer Relationship Specialty Start Date End Date Abraham Wooten DO [address] [place], [place] [address] [address] PCP - General Family Medicine 05/19/25
--- OUTSIDE RECORDS SUMMARY | 2025-07-05 09:38 | XMS_ITS | Clinical Summary ---
Author Organization [facility] Care Team Providers Care Hvac Estimator Name Role Phone Unavailable Primary Care Provider Unavailabl e Social History Tobacco Use Types Packs/Day Years Used Date Smoking Tobacco: Never Assessed Comments Unknown Sex and Gender Information Value Date Recorded Sex Assigned at Not on file Legal Sex Female 12:18 PM [employer]CHO[employer] TRANSPORTATION DIRECT[employer] Gender Identity Not on file Sexual Orientation Not on file Plan of Treatment Health Maintenance Due Date Last Done Comments Hepatitis C Virus (HCV) Screening 1983 Hepatitis B Immunization (1 of 3 - 19+ 3-dose series) 2002 Pap Smear 2004 Human Papillomavirus (HPV) Immunization (1 - 3-dose SCDM series) 2010 Cervical Cancer Screening (CCS) 2013 HPV/Cotest 2013 Influenza Immunization (#1) 04/28/202505/28, 06/09/2019, 06/06/2017, Additional history exists SARS-COV-2 Immunization ( season) 2025 10/27/2020, 10/06/2020 Respiratory Syncytial Virus (RSV) Immunization [...]
--- OUTSIDE RECORDS SUMMARY | 2025-07-05 09:38 | XMS_ITS | Clinical Summary ---
Author Organization [facility] Address [facility] [place] [address] Care Team Providers Care Certified Wellness Program Manager Name Role Phone Unavailable Primary Care [...] of 3 - 19+ 3-dose series) 2002 HPV Vaccines (1 - 3-dose SCD M series) 2010 Cervical Cancer Screening Pa p with HPV Testing (Age 30 to 64) Every 5 Years 2013 Cervical Cancer Screening with HPV 2013 Mammogram Screening 2023 PHQ-2 (Physician [place]) 08/28/2024 COVID-19 Vaccine ( - 2024-2 6 season) 2025 Influenza Adult (#1) 2025 Hepatitis A Vaccines Aged Out No long er eligible based on patient's age to complete [...] patient's age to complete this topic Insurance [facility]
== END 2025-07-05 09:31 | disposition home or self-care (01) ==
PROVIDERS: PCP Family Medicine; Visit Provider Family Medicine
DX: M25.511 Pain in right shoulder (principal); M50.30 Other cervical disc degeneration, unspecified cervical region
CPT/HCPCS: 72052; 73030